=== PATIENT | female | born 1980 | race Caucasian/White ===

== ENCOUNTER 2017-11-22 18:56 | Emergency (ER) | payer MEDICAID ==
[2017-11-22 19:40] VITALS: BP 136/84; PULSE 98; RESP 18; TEMP 99.2; O2SAT 99
[2017-11-22] MEDS ORDERED: Dexamethasone 4 mg/1 ml IM STA (20:05)
--- NOTE | 2017-11-22 20:50 | C.PDOC ---
History Of Present Illness 37 year old female is sent to the ED by her PMD for evaluation of worsening throat pain and possible peritonsilar abscess. Patient reports she saw her PMD 3 days ago c/o sore throat and was prescribed Amoxicillin for pharyngitis. Patient states symptoms have not improved and now is c/o increased pain mostly on her left side of the throat. Patient went to see her PMD today who sent her to the ED for evaluation. Patient denies fever, chills, nausea, vomit, weakness , numbness. Time Seen by Provider: 11/22/17 19:50 Chief Complaint (Nursing): ENT Problem History Per: Patient History/Exam Limitations: None Onset/Duration Of Symptoms: Days Current Symptoms Are (Timing): Worse Quality (Mouth/Throat): Tenderness Symptoms Have Been: Continuous Anticoagulant/Antiplatlet Use?: No Recent Aspirin Use: No Past Medical History Reviewed: Historical Data, Nursing Documentation, Vital Signs Vital Signs: Last Vital Signs Temp 99.2 F 11/22/17 19:36 Pulse 98 H 11/22/17 19:36 Resp 18 11/22/17 19:36 BP 136/84 11/22/17 19:36 Pulse Ox 99 11/23/17 00:10 - Medical History PMH: No Chronic Diseases Surgical History: - [facility] Procedures MONITORING NOS (03/04/14) Family History: States: Unknown Family Hx - Social History Hx Tobacco Use: No Hx Alcohol Use: No Hx Substance Use: No - Immunization History Hx Tetanus Toxoid Vaccination: No Hx Influenza Vaccination: Yes Hx Pneumococcal Vaccination: No Review Of Systems Constitutional: Negative for: Fever, Chills ENT: Positive for: Throat Pain. Negative for: Nose Discharge, Nose Congestion, Throat Swelling Respiratory: Negative for: Cough, Shortness of Breath Skin: Negative for: Rash Neurological: Negative for: Weakness, Numbness Physical Exam - Physical Exam Appears: Non-toxic, No Acute Distress Skin: Normal Color, Warm, Dry Head: Atraumatic, Normacephalic, No Swelling (facial, mandible) Eye(s): bilateral: Normal Inspection Ear(s): Bilateral: Normal Nose: No Discharge Oral Mucosa: Moist Tongue: No Swelling Lips: No Swelling Throat: Erythema, No Exudate, No Drooling, Other (B/L tonsillar enlargement. Left > Right. Uvula midline. No fluctuant mass or exudates) Neck: Normal ROM, No Midline Cervical Tenderness, Supple, Other (No neck swelling) Neurological/Psych: Oriented x3, Normal Speech Gait: Steady ED Course And Treatment O2 Sat by Pulse Oximetry: 99 (ON RA) Pulse Ox Interpretation: Normal Progress Note: Plan: - Clindamycin 300 mg PO. - Decadron 10 mg IM. Patient was advised to discontinue the use of amoxicillin and clindamycin was initiated in the ED instead. Patient was also advised to follow up with PMD and ENT for further evaluation. Return precautions d/w pt who understand and agreed with plan Reassessment Condition: Improved Disposition Counseled Patient/Family Regarding: Diagnosis, Need For Followup, Rx Given - Disposition Referrals: Rafy Stevens MD [Staff Provider] - Disposition: HOME/ ROUTINE Disposition Time: 20:48 Condition: STABLE Additional Instructions: Discontinue amoxicillin Take new meds as prescribed Gargle with warm salt water Follow up with Dr Stevens as needed Return to ER if neck or facial swelling, difficulty swallowing saliva, or worse Prescriptions: Clindamycin [Cleocin] 300 mg PO QID #28 cap predniSONE [Prednisone] 40 mg PO DAILY #10 tab Instructions: Sore Throat, Adult (DC) Forms: [employer] (Wolof) Print Language: TURKISH - Clinical Impression Clinical Impression: Pharyngitis - 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 - Scribe Statement The provider has reviewed the documentation as recorded by the Scribe Kamlesh Hinojosa All medical record entries made by the Scribe were at my direction and personally dictated by me. I have reviewed the chart and agree that the record accurately reflects my personal performance of the history, physical exam, medical decision making, and the department course for this patient. I have also personally directed, reviewed, and agree with the discharge instructions and disposition.
== END 2017-11-22 20:56 | disposition home or self-care (01) ==
LOC: SUPCPDRO 18:56 → C.ER 18:56
DX: J02.9 Acute pharyngitis, unspecified (principal)
CPT/HCPCS: 96372; 99283; J1100

== ENCOUNTER 2017-12-26 18:46 | Observation (INO) | payer MEDICAID ==
[2017-12-26 18:56] VITALS: BMI 51.5
[2017-12-26] MEDS ORDERED: Sodium Chloride 0.9% 1,000 ML IV ONE (19:13)
[2017-12-26] MEDS ORDERED: Clindamycin 600 MG in Sodium Chloride 0.9% 100 ML IV STA (19:14)
[2017-12-26] MEDS ORDERED: Morphine 4 MG/ML VIAL IV ONE (19:16)
[2017-12-26] MEDS ORDERED: Iodixanol 320 MG/ML 100 ML BOTTLE IV ONE (19:19)
--- NOTE | 2017-12-26 19:26 | C.PDOC ---
History Of Present Illness 37 year old with no significant PMHx presents to the ED c/o 1 week history of throat pain. Patient reports her pain has been increasing along with swallowing a fever, she also reports tender and swelling on her left side of the neck. Patient went to see Dr. Cabrera who placed her on amoxil but patient reports no improvements of her symptoms. Patient went to see Dr. Cabrera again today but was referred to the ED for further evaluation for possible abscess. Patient denies headache, vomit, diarrhea, chills, CP, SOB. Time Seen by Provider: 12/26/17 19:09 Chief Complaint (Nursing): ENT Problem History Per: Patient History/Exam Limitations: None Onset/Duration Of Symptoms: Days (1 week) Current Symptoms Are (Timing): Still Present Quality (Mouth/Throat): Tenderness, Swelling Anticoagulant/Antiplatlet Use?: No Recent Aspirin Use: No Past Medical History Reviewed: Historical Data, Nursing Documentation, Vital Signs Vital Signs: Last Vital Signs Temp 97.6 F 12/27/17 00:00 Pulse 91 H 12/27/17 00:00 Resp 20 12/27/17 00:00 BP 112/74 12/27/17 00:00 Pulse Ox 97 12/27/17 00:00 - Medical History PMH: No Chronic Diseases Surgical History: - [facility] Procedures MONITORING NOS (03/04/14) Family History: States: Unknown Family Hx - Social History Hx Tobacco Use: No Hx Alcohol Use: No Hx Substance Use: No - Immunization History Hx Tetanus Toxoid Vaccination: No Hx Influenza Vaccination: Yes Hx Pneumococcal Vaccination: No Review Of Systems Constitutional: Negative for: Fever, Chills ENT: Positive for: Throat Pain, Throat Swelling. Negative for: Nose Discharge, Nose Congestion Cardiovascular: Negative for: Chest Pain Respiratory: Negative for: Cough, Shortness of Breath Gastrointestinal: Negative for: Nausea, Vomiting, Abdominal Pain Skin: Negative for: Rash Neurological: Negative for: Weakness, Numbness Physical Exam - Physical Exam Appears: Non-toxic, No Acute Distress Skin: Normal Color, Warm, Dry Head: Atraumatic, Normacephalic Eye(s): bilateral: Normal Inspection Ear(s): Bilateral: Normal Nose: No Discharge Oral Mucosa: Moist Throat: Erythema, Exudate, No Drooling, Mass (left tonsil ), Other (Uvula midline ) Neck: Normal ROM, Supple Lymphatic: Adenopathy (submandibular tenderness) Cardiovascular: Rhythm Regular, No Murmur Respiratory: Normal Breath Sounds, No Rales, No Rhonchi, No Wheezing Gastrointestinal/Abdominal: Soft, No Tenderness, No Mass, No Guarding, No Rebound, Other (obese) Extremity: Normal ROM, No Tenderness, Capillary Refill (< 2 seconds), No Swelling Pulses: Left Dorsalis Pedis: Normal, Right Dorsalis Pedis: Normal Neurological/Psych: Oriented x3, Normal Speech Gait: Steady ED Course And Treatment - Laboratory Results Result Diagrams: 12/26/17 19:30 12/26/17 19:30 O2 Sat by Pulse Oximetry: 100 (ON RA) Pulse Ox Interpretation: Normal - CT Scan/US CT neck Other Rad Studies (CT/US): Read By Radiologist, Radiology Report Reviewed CT/US Interpretation: FINDINGS: Oropharynx: Left tonsillar inflammation and edema accompanied by a small abscess which. measures 1.6 cm. Mild mass effect on the adjacent airway. Hypopharynx: Unremarkable. Larynx: Unremarkable. Normal epiglottis. Trachea: Unremarkable. Retropharyngeal space: Unremarkable. Submandibular/parotid glands: The parotid and submandibular salivary glands are normal. Thyroid: The visualized thyroid and the thoracic inlet appear normal. Bones/joints: No acute fracture. Soft tissues: Unremarkable. Vasculature: No acute findings. Lymph nodes: There are multiple enlarged nonspecific bilateral left more to the right cervical nodes. Sinuses: Sinuses are clear without air-fluid levels, or mucoperiosteal thickening. Lung apices: The visualized portions of the lung apices are normal. IMPRESSION: Left tonsillitis complicated by a small abscess. Reactive cervical adenopathy more pronounced on the left. Thank you for allowing us to participate in the care of your patient. Dictated and Authenticated by: Lucius Gonsalves MD. 8:20 PM Eastern Time ([place] & [place]) Medical Decision Making Medical Decision Making: Impression: possible left peritonsillar abscess Plan: * CT neck * Labs * Clindamycin IV * Decadron 10 mg IVP * Morphine 4 mg IVP * IV fluids * [place] * Rapid strep group Disposition - Disposition Disposition: HOSPITALIZED Disposition Time: 04:31 Condition: GOOD - Clinical Impression Clinical Impression: Peritonsillar abscess - Scribe Statement The provider has reviewed the documentation as recorded by the Scribe Kamlesh Hinojosa All medical record entries made by the Pierreibkatelyn were at my direction and personally dictated by me. I have reviewed the chart and agree that the record accurately reflects my personal performance of the history, physical exam, medical decision making, and the department course for this patient. I have also personally directed, reviewed, and agree with the discharge instructions and disposition.
[2017-12-26 19:34] LABS: BASO % 0.3 % (0.0-2.0); EOS # 0.1 K/uL (0.0-0.7); EOS % 0.6 % (0.0-4.0); LYMPH # 2.1 K/uL (1.0-4.3); LYMPH % 20.5 % (20.0-40.0); MEAN CELL VOLUME 80.7 fL (81.0-99.0); MEAN CORPUSCULAR HEMOGLOBIN 27.4 pg (27.0-31.0); MEAN PLATELET VOLUME 8.5 fL (7.2-11.7); MONO # 0.8 K/uL (0.0-0.8); MONO % 7.8 % (0.0-10.0); NEUT # 7.1 K/uL (1.8-7.0); NEUT % 70.8 % (50.0-75.0); RBC 4.76 Mil/uL (3.80-5.20); RED CELL DISTRIBUTION WIDTH 15.4 % (11.5-14.5)
[2017-12-26] MEDS ORDERED: Sodium Chloride 0.9% 1,000 ML ONE (19:42)
[2017-12-26] MEDS ORDERED: Morphine 4 MG/ML VIAL ONE (19:42)
[2017-12-26 19:45] LABS: ALB/GLOB RATIO 1.1 (1.0-2.1); ALBUMIN 4.1 g/dL (3.5-5.0); ALT/SGPT 35 U/L (9-52); AST/SGOT 18 U/L (14-36); BLOOD UREA NITROGEN 12 mg/dL (7-17); CALCIUM 9.4 mg/dl (8.6-10.4); GFR AFRICAN-AMERICAN > 60; GFR NON-AFRICAN AMERICAN > 60
[2017-12-27 01:37] VITALS: RESP 20
[2017-12-27] MEDS ORDERED: Lidocaine/Epi 1% 1:100000 20 ML IJ SCH (06:00)
--- NOTE | 2017-12-27 08:18 | CP.PCM.PN ---
Subjective - Date & Time of Evaluation Date of Evaluation: 12/27/17 Time of Evaluation: 07:50 - Subjective Subjective: PGY2 Resident - Medicine Progress Note This 37 year old with no significant PMHx presents to the ED c/o 1 week history of throat pain. Patient reports her pain has been increasing along with swallowing a fever, she also reports tender and swelling on her left side of the neck. Patient went to see Dr. Cabrera who placed her on amoxil but patient reports no improvements of her symptoms. Patient went to see Dr. Cabrera again today but was referred to the ED for further evaluation for possible abscess. Patient denies headache, vomit, diarrhea, chills, CP, SOB. PMHx - none PSHx - none NKDA Meds - none FamHx- none Patient seen and examined at bedside. No acute distress. No overnight events. Patient is s/p I&D of L Peritonsillar abscess with Dr. Stevens. Patient tolerated the procedure well and reports decreased pressure and pain. +BM this morning. Currently denies f/c, headache, chest pain, SOB, abdominal pain, n/v, d/c, or LE edema. 12-point review of systems is otherwise negative without any additional acute complaints. Objective - Vital Signs/Intake and Output Vital Signs (last 24 hours): Temp Pulse Resp BP Pulse Ox 97.6 F 76 20 103/70 96 12/27/17 07:37 12/27/17 07:37 12/27/17 07:37 12/27/17 07:37 12/27/17 07:37 Intake and Output: 12/27/17 12/27/17 06:59 18:59 Intake Total 200 Balance 200 - Medications Medications: Current Medications Lidocaine/Epinephrine (Lidocaine/Epi 1% 1:321377 20 Ml) 20 ml IJ ONCE CAROL - Labs Labs: 12/26/17 19:30 12/26/17 19:30 - Additional Findings Additional findings: Appears: Non-toxic, No Acute Distress Skin: Normal Color, Warm, Dry Head: Atraumatic, Normacephalic Eye(s): bilateral: Normal Inspection Ear(s): Bilateral: Normal Nose: No Discharge Oral Mucosa: Moist Throat: Erythema, No Drooling, Mass (left tonsil- s/p I&D ), Other (Uvula midline ) Neck: Normal ROM, Supple Lymphatic: Adenopathy (submandibular tenderness) Cardiovascular: Rhythm Regular, No Murmur Respiratory: Normal Breath Sounds, No Rales, No Rhonchi, No Wheezing Gastrointestinal/Abdominal: Soft, No Tenderness, No Mass, No Guarding, No Rebound, Other (obese) Extremity: Normal ROM, No Tenderness, Capillary Refill (< 2 seconds), No Swelling Pulses: Left Dorsalis Pedis: Normal, Right Dorsalis Pedis: Normal Neurological/Psych: Oriented x3, Normal Speech Assessment and Plan - Assessment and Plan (Free Text) Assessment: Peritonsillar abscess, Left, s/p I&D * ENT consult Dr. Stevens, f/u recs * Patient is s/p I&D 12/26/17 * * Viscous lidocain q4H PRN * IVF ns 0.9 at 80cc/hr * Clindamycin 600mg IVPB q8H * * WBC 10, wnl * negative mono, negative group A strep * CT neck - L tonsillitis + small abscess. see full report Prophylaxis * SCDs * Protonix 40mg IVP qD Disposition: Likely d/c 12/28 Case discussed with attending. All medical management as per Dr. Elvin Cabrera.
--- NOTE | 2017-12-27 10:36 | CT ---
PROCEDURE: CT NECK dated 12/26/2017 HISTORY: Peritonsillar abscess COMPARISON: No prior study available for comparison TECHNIQUE: Contiguous helical/ transaxial sections of the neck with intravenous contrast. Coronal and sagittal reformats generated. Intravenous contrast dose: 100 cc Visipaque 320 Radiation dose: DLP 586.39 mGy-cm This CT exam was performed using one or more of the following dose reduction techniques: Automated exposure control, adjustment of the mA and/or kV according to patient size, and/or use of iterative reconstruction technique. FINDINGS: The current study reveals enlargement of the palatine tonsils more so on the left than right consistent with tonsillitis. There is a small incompletely visualized elliptical shaped low-attenuation in the in the left lateral peritonsillar region that measures approximately 14.5 mm x 5 mm consistent with a small left palatine peritonsillar abscess. Note that the streak and beam hardening artifact of partially obscures the superior margin of this suspected abscess. The tonsils encroach medially reducing the rock pharyngeal airway. . The vallecula is relatively symmetric. Free margin of the epiglottis unremarkable. There is minor asymmetry of the pyriform sinuses right-sided which is slightly larger than the left though this is likely due to some mild mass effect reduced by a short retropharyngeal course of the distal common carotid artery which includes the bifurcation and proximal left internal carotid artery. True vocal cords are symmetric. Airway is patent. There are multiple on bilateral cervical lymph nodes seen within the jugulodigastric, submandibular, submental and posterior cervical spaces none of which appear pathologically enlarged. . Largest on left-sided jugular digastric lymph node measures approximately 12.8 cm and largest right-sided jugulodigastric lymph node measures approximately 0.96 cm. . IMPRESSION: Mild enlargement of both palatine tonsils left, greater than right with what appears represent a small incompletely seen (due to streak and beam hardening artifact) left palatine tonsillar abscess. . See above discussion for additional details.
[2017-12-27] MEDS: Acetaminophen-Codeine 300/30 mg Tab PO PRN ×2 (11:13→23:45)
[2017-12-27] MEDS: Sodium Chloride 0.9% 1,000 ML IV SCH ×2 (11:17→23:44)
[2017-12-27 11:33] LABS: BASO % 0.1 % (0.0-2.0); HEMOGLOBIN 12.8 g/dL (11.0-16.0); LYMPH # 1.1 K/uL (1.0-4.3); LYMPH % 10.7 % (20.0-40.0); MEAN CELL VOLUME 80.4 fL (81.0-99.0); MEAN CORPUSCULAR HEMOGLOBIN 27.4 pg (27.0-31.0); MEAN CORPUSCULAR HGB CONC 34.1 g/dL (33.0-37.0); MEAN PLATELET VOLUME 8.6 fL (7.2-11.7); MONO # 0.4 K/uL (0.0-0.8); MONO % 3.5 % (0.0-10.0); NEUT # 8.7 K/uL (1.8-7.0); NEUT % 85.7 % (50.0-75.0); NRBC % 0.1 % (0.0-2.0); RBC 4.66 Mil/uL (3.80-5.20); RED CELL DISTRIBUTION WIDTH 15.1 % (11.5-14.5); WHITE BLOOD COUNT 10.1 K/uL (4.8-10.8)
[2017-12-27 11:50] LABS: ALB/GLOB RATIO 1.1 (1.0-2.1); ALBUMIN 4.2 g/dL (3.5-5.0); ALT/SGPT 18 U/L (9-52); AST/SGOT 18 U/L (14-36); BLOOD UREA NITROGEN 10 mg/dL (7-17); CALCIUM 9.3 mg/dl (8.6-10.4); GFR AFRICAN-AMERICAN > 60; GFR NON-AFRICAN AMERICAN > 60
[2017-12-27] MEDS: Clindamycin 600mg/50ml NS 600 MG/50 ML BAG IVPB SCH ×2 (12:54→19:55)
[2017-12-27] MEDS ORDERED: Pneumococcal 23-Valent Vaccine IM ONE (14:50)
--- NOTE | 2017-12-27 20:07 | OP ---
PROCEDURE DATE: 12/26/2017 PREOPERATIVE DIAGNOSIS: Left peritonsillar abscess. POSTOPERATIVE DIAGNOSIS: Left peritonsillar abscess. SURGEON: Rafy Stevens MD SIGNIFICANT FINDINGS: Left peritonsillar abscess. DESCRIPTION OF PROCEDURE: The patient was brought into the room. The patient was placed in seated position. The left peritonsillar area was injected with lidocaine with epinephrine. A #11 blade was used to make an incision in the left peritonsillar area. Blunt dissection was done. Pus was noted coming out. Loculations were broken into the clamp. Bleeding was controlled with time. The patient tolerated the procedure well. Rafy Stevens MD MTDD
[2017-12-28 00:40] VITALS: PULSE 82; O2SAT 97
[2017-12-28] MEDS: Clindamycin 600mg/50ml NS 600 MG/50 ML BAG IVPB SCH ×2 (03:34→11:51)
--- NOTE | 2017-12-28 07:48 | CP.PCM.PN ---
Subjective - Date & Time of Evaluation Date of Evaluation: 12/28/17 Time of Evaluation: 07:05 - Subjective Subjective: PGY2 Resident - Medicine Progress Note Patient seen and examined at bedside. No acute distress. No overnight events. Patient is s/p I&D of L Peritonsillar abscess with Dr. Stevens. Patient tolerated the procedure well and reports decreased pressure and pain. +BM this morning. Currently denies f/c, headache, chest pain, SOB, abdominal pain, n/v, d/c, or LE edema. 12-point review of systems is otherwise negative without any additional acute complaints. --- Patient is stable for discharge per Dr. Cabrera. Patient should resume all medications as outlined in this document. Additionally, patient should take the new medications listed below (scripts provided). Please avoid hard foods for 5 days, to allow your L tonsil time to heal after the I&D. Please make an appointment and follow up with your Primary Doctor within one week of discharge. Patient should return to ED immediately if symptoms return or worsen. Instructions discussed with patient who understood and agreed. Newly prescribed medications: Augmentin 875mg PO q12H #14 Objective - Vital Signs/Intake and Output Vital Signs (last 24 hours): Temp Pulse Resp BP Pulse Ox 97.2 F L 82 20 106/66 97 12/28/17 00:00 12/28/17 00:00 12/28/17 00:00 12/28/17 00:00 12/28/17 00:00 Intake and Output: 12/28/17 12/28/17 06:59 18:59 Intake Total 1740 Balance 1740 - Medications Medications: Current Medications Acetaminophen/Codeine Phosphate (Tylenol/Codeine 300 Mg/30 Mg) 1 ea PO Q6 PRN PRN Reason: Pain, moderate (4-7) Last Admin: 12/27/17 23:45 Dose: 1 ea Clindamycin Phosphate (Cleocin In Normal Saline) 600 mg in 50 mls @ 100 mls/hr IVPB Q8H CAROL PRN Reason: Protocol Last Admin: 12/28/17 03:34 Dose: 100 mls/hr Sodium Chloride (Sodium Chloride 0.9%) 1,000 mls @ 80 mls/hr IV .[id number] CAROL Last Admin: 12/27/17 23:44 Dose: 80 mls/hr Lidocaine HCl (Lidocaine 2% Viscous) 15 ml PO Q4H PRN PRN Reason: Pain, Mild (1-3) Last Admin: 12/28/17 03:36 Dose: 15 ml Lidocaine/Epinephrine (Lidocaine/Epi 1% 1:083963 20 Ml) 20 ml IJ ONCE CAROL Pantoprazole Sodium (Protonix Inj) 40 mg IVP DAILY CAROL Last Admin: 12/27/17 12:54 Dose: 40 mg - Labs Labs: 12/27/17 11:22 12/27/17 11:22 - Additional Findings Additional findings: Appears: Non-toxic, No Acute Distress Skin: Normal Color, Warm, Dry Head: Atraumatic, Normacephalic Eye(s): bilateral: Normal Inspection Ear(s): Bilateral: Normal Nose: No Discharge Oral Mucosa: Moist Throat: Erythema, No Drooling, Mass (left tonsil- s/p I&D ), Other (Uvula midline ) Neck: Normal ROM, Supple Lymphatic: Adenopathy (submandibular tenderness) Cardiovascular: Rhythm Regular, No Murmur Respiratory: Normal Breath Sounds, No Rales, No Rhonchi, No Wheezing Gastrointestinal/Abdominal: Soft, No Tenderness, No Mass, No Guarding, No Rebound, Other (obese) Extremity: Normal ROM, No Tenderness, Capillary Refill (< 2 seconds), No Swelling Pulses: Left Dorsalis Pedis: Normal, Right Dorsalis Pedis: Normal Neurological/Psych: Oriented x3, Normal Speech Assessment and Plan - Assessment and Plan (Free Text) Assessment: Peritonsillar abscess, Left, s/p I&D * 12/28: WBC 5.0; patient will be d/c'd on PO abx. * ENT consult Dr. Stevens, f/u recs * Patient is s/p I&D 12/26/17 * * Viscous lidocain q4H PRN * IVF ns 0.9 at 80cc/hr * Clindamycin 600mg IVPB q8H * * WBC 10, wnl * negative mono, negative group A strep * CT neck - L tonsillitis + small abscess. see full report Prophylaxis * SCDs * Protonix 40mg IVP qD Disposition: Likely d/c 12/28 Case discussed with attending. All medical management as per Dr. Elvin Cabrera.
[2017-12-28 08:09] LABS: BASO % 0.2 % (0.0-2.0); EOS % 0.2 % (0.0-4.0); HEMOGLOBIN 12.4 g/dL (11.0-16.0); LYMPH # 2.9 K/uL (1.0-4.3); LYMPH % 28.4 % (20.0-40.0); MEAN CORPUSCULAR HEMOGLOBIN 27.8 pg (27.0-31.0); MEAN CORPUSCULAR HGB CONC 34.7 g/dL (33.0-37.0); MEAN PLATELET VOLUME 8.7 fL (7.2-11.7); MONO # 0.7 K/uL (0.0-0.8); MONO % 6.8 % (0.0-10.0); NEUT # 6.6 K/uL (1.8-7.0); NEUT % 64.4 % (50.0-75.0); RBC 4.45 Mil/uL (3.80-5.20); RED CELL DISTRIBUTION WIDTH 15.4 % (11.5-14.5); WHITE BLOOD COUNT 10.2 K/uL (4.8-10.8)
[2017-12-28 08:27] LABS: ALB/GLOB RATIO 1.1 (1.0-2.1); ALBUMIN 3.8 g/dL (3.5-5.0); ALT/SGPT 17 U/L (9-52); AST/SGOT 16 U/L (14-36); BLOOD UREA NITROGEN 13 mg/dL (7-17); CALCIUM 8.6 mg/dl (8.6-10.4); GFR AFRICAN-AMERICAN > 60; GFR NON-AFRICAN AMERICAN > 60
[2017-12-28 08:42] VITALS: BP 105/73; TEMP 98.4
--- NOTE | 2017-12-28 09:24 | HP ---
HISTORY OF PRESENT ILLNESS: The patient was admitted to the hospital with chief complaint of weakness, fatigue, status post fall, difficulty swallowing. The patient was found to have peritonsillar abscess. Advised admission from the ER. PHYSICAL EXAMINATION: GENERAL: The patient is awake, alert, and oriented. VITAL SIGNS: Temperature 98, , pulse of 90. HEENT: Reveals abscess in the peritonsillar area. NECK: Supple. CHEST: Symmetrical. HEART: Regular. ABDOMEN: Soft. EXTREMITIES: No edema. IMPRESSION AND PLAN: Peritonsillar abscess. The patient to get IV antibiotics, supportive care. Ear, Nose, Throat consult. Deb Cabrera MD
[2017-12-28] MEDS: Sodium Chloride 0.9% 1,000 ML IV SCH (13:32)
== END 2017-12-28 15:40 | disposition home or self-care (01) ==
LOC: C.ER 18:46 → C.9E 20:29 → C.3T 22:01
PROVIDERS: ADMIT Internal Medicine Pulmonary Disease; ATTEND Internal Medicine Pulmonary Disease
DX: J36 Peritonsillar abscess (principal)
CPT/HCPCS: 36415; 42700; 70491; 80053; 83735; 84100; 85025; 86308; 87070; 87430; 96361; 96365; 96366; 96375; 96376; 99285; C9113; G0378; J1100; J2270; J7040; Q9967

== ENCOUNTER 2018-08-30 14:09 | Outpatient (CLI) | payer MEDICAID | END 2018-08-30 14:10 | disposition home or self-care (01) | LOC: C.RADIC 14:09 | DX: M19.071 Primary osteoarthritis, right ankle and foot (principal); M19.072 Primary osteoarthritis, left ankle and foot ==

== ENCOUNTER 2018-09-25 01:17 | Emergency (ER) | payer MEDICAID ==
[2018-09-25 01:17] VITALS: BMI 51.5
[2018-09-25] MEDS ORDERED: Sodium Chloride 0.9% 1,000 ML IV ONE (01:59)
--- NOTE | 2018-09-25 02:00 | C.PDOC ---
History Of Present Illness 38 year old female, whose past medical history includes asthma and arthritis, presents to the ED for evaluation of diffuse abdominal pain which began at around 2200 today, after she accidentally drank a small cup of buttermil k three hours prior. Patient states her pain is crampy and generalized, worst epigastric and LUQ. She took one 500mg tablet of Tylenol without relief. Otherwise, she denies chest pain, back pain, trouble breathing, cough, congestion, vomiting, diarrhea, urinary symptoms, fever, chills, or any other associated symptoms. Time Seen by Provider: 09/25/18 01:31 Chief Complaint (Nursing): Abdominal Pain History Per: Patient History/Exam Limitations: no limitations Onset/Duration Of Symptoms: Hrs Current Symptoms Are (Timing): Still Present Location Of Pain/Discomfort: Diffuse Radiation Of Pain To:: None Quality Of Discomfort: Sharp, "Pain" Associated Symptoms: denies: Vomiting, Diarrhea Additional History Per: Patient Abnormal Vaginal Bleeding: No Past Medical History Reviewed: Historical Data, Nursing Documentation, Vital Signs Vital Signs: Last Vital Signs Temp 97.6 F 09/25/18 01:31 Pulse 84 09/25/18 01:31 Resp 18 09/25/18 01:31 BP 120/81 09/25/18 01:31 Pulse Ox 100 09/25/18 01:31 - Medical History PMH: Asthma Surgical History: - [facility] MONITORING NOS (03/04/14) Family History: States: Unknown Family Hx - Social History Hx Tobacco Use: No Hx Alcohol Use: No Hx Substance Use: No - Immunization History Hx Tetanus Toxoid Vaccination: No Hx Influenza Vaccination: Yes Hx Pneumococcal Vaccination: No Review Of Systems Constitutional: Negative for: Fever, Chills Eyes: Negative for: Vision Change ENT: Negative for: Nose Congestion, Throat Pain Cardiovascular: Negative for: Chest Pain, Palpitations, Light Headedness Respiratory: Negative for: Cough, Shortness of Breath Gastrointestinal: Positive for: Abdominal Pain (diffuse ). Negative for: Nausea, Vomiting, Diarrhea Musculoskeletal: Negative for: Neck Pain, Back Pain Skin: Negative for: Rash Neurological: Negative for: Weakness, Numbness, Headache, Dizziness Physical Exam - Physical Exam Appears: Well, Non-toxic, No Acute Distress Skin: Normal Color, Warm, Dry Head: Atraumatic, Normacephalic Eye(s): bilateral: Normal Inspection, PERRL, EOMI Nose: Normal Oral Mucosa: Moist Neck: Normal ROM, No Midline Cervical Tenderness, No Paracervical Tenderness, Supple Chest: Symmetrical, No Deformity, No Tenderness Cardiovascular: Rhythm Regular, No Murmur Respiratory: Normal Breath Sounds, No Accessory Muscle Use, No Rales, No Rhonchi, No Wheezing Gastrointestinal/Abdominal: Bowel Sounds (hyperactive throughout), Soft, Tend erness (to epigastric and left upper quadrants ), No Guarding, No Rebound Back: Normal Inspection, No CVA Tenderness, No Paraspinal Tenderness Extremity: Normal ROM, No Tenderness, Capillary Refill (less than 2 seconds ), No Swelling Extremity: Bilateral: Atraumatic, No Pedal Edema, Normal Color And Temperature, Normal ROM Pulses: Left Radial: Normal, Right Radial: Normal Neurological/Psych: Oriented x3, Normal Speech, Normal Cognition, Normal Motor, Normal Sensation Gait: Steady ED Course And Treatment - Laboratory Results Result Diagrams: 09/25/18 02:42 09/25/18 02:42 Lab Interpretation: Normal Urine POC: Negative ECG: Interpreted By Me ECG Rhythm: Sinus Rhythm, 1st Degree HB Interpretation Of ECG: Rate 89; NSR with 1st degree AV block; No STEMI or other signs of acute ischemia Rate From EC O2 Sat by Pulse Oximetry: 100 (on RA) Pulse Ox Interpretation: Normal - Radiology CXR: Interpreted by Me (and Dr. Richardson), Viewed By Me CXR Interpretation: Yes: No Acute Disease Medical Decision Making Medical Decision Making: Plan: * bloodwork * urinalysis * EKG * CXR * Pepcid IVP * Toradol IVP * IV Fluids * reassess and disposition Progress: Bloodwork, urinalysis reviewed, unremarkable EKG shows NSR with 1st degree AV block; no STEMI or other ischemic changes CXR shows no active disease as read by me On reassessment, patient is resting comfortably, showing no signs of distress and reports resolution of her pain. Patient is stable for discharge. She is advised to follow up with her PMD within 1-2 days for further evaluation. Advised to return to the ED if symptoms return or worsen. Diagnostic testing results and plan of care discussed with patient. Strict instructions given regarding prescription use, importance of followup, and signs/symptoms to return to ER including worsening abdominal pain, fever, chills, vomiting, chest pain, or any other new/worsening symptoms. Pt verbalized understanding of discussion. Patient is A&Ox3, ambulating with steady gait, with vital signs stable for discharge. Disposition - Disposition Referrals: Griffin Carballo MD [Primary Care Provider] - Disposition: HOME/ ROUTINE Disposition Time: 03:45 Condition: IMPROVED Additional Instructions: Pepcid every 12 hours as needed Increase fluids Followup with primary doctor within 2 days Return to ER for any new/worsening symptoms Prescriptions: Famotidine [Pepcid] 20 mg PO Q12 #30 tab Instructions: Food Poisoning Forms: General Discharge Instructions, [facility] (Burkinan), Work Excuse - Clinical Impression Clinical Impression: Gastroenteritis - PA / [employer] / Resident Statement MD/DO has reviewed & agrees with the documentation as recorded. - Scribe Statement The provider has reviewed the documentation as recorded by the Scribe (Jodi Colvin) All medical record entries made by the Scribe were at my direction and personally dictated by me. I have reviewed the chart and agree that the record a ccurately reflects my personal performance of the history, physical exam, medical decision making, and the department course for this patient. I have also personally directed, reviewed, and agree with the discharge instructions and disposition.
[2018-09-25] MEDS ORDERED: Sodium Chloride 0.9% 1,000 ML ONE (02:27)
[2018-09-25 02:46] LABS: BASO % 0.3 % (0.0-2.0); EOS # 0.1 K/uL (0.0-0.7); EOS % 1.6 % (0.0-4.0); HEMOGLOBIN 12.6 g/dL (11.0-16.0); LYMPH # 2.1 K/uL (1.0-4.3); LYMPH % 29.3 % (20.0-40.0); MEAN CELL VOLUME 83.2 fL (81.0-99.0); MEAN CORPUSCULAR HEMOGLOBIN 27.3 pg (27.0-31.0); MEAN CORPUSCULAR HGB CONC 32.9 g/dL (33.0-37.0); MEAN PLATELET VOLUME 8.6 fL (7.2-11.7); MONO # 0.6 K/uL (0.0-0.8); NEUT # 4.4 K/uL (1.8-7.0); NEUT % 60.8 % (50.0-75.0); NRBC % 0.1 % (0.0-2.0); RBC 4.6 Mil/uL (3.80-5.20); RED CELL DISTRIBUTION WIDTH 15.3 % (11.5-14.5); WHITE BLOOD COUNT 7.3 K/uL (4.8-10.8)
[2018-09-25 02:56] LABS: INR 1.1; PROTHROMBIN TIME 11.9 SECONDS (9.7-12.2)
[2018-09-25 02:59] LABS: ALB/GLOB RATIO 1.3 (1.0-2.1); ALBUMIN 4.2 g/dL (3.5-5.0); ALT/SGPT 33 U/L (9-52); AST/SGOT 75 U/L (14-36); BLOOD UREA NITROGEN 17 mg/dL (7-17); CALCIUM 9.2 mg/dl (8.6-10.4); GFR NON-AFRICAN AMERICAN > 60; LIPASE 72 U/L (23-300)
[2018-09-25 03:13] LABS: SQUAMOUS EPITHIAL < 1 /hpf (0-5); URINE BILIRUBIN NEGATIVE (NEGATIVE); URINE BLOOD NEGATIVE (NEGATIVE); URINE CLARITY Clear (Clear); URINE COLOR Yellow (YELLOW); URINE GLUCOSE (UA) NORMAL (Normal); URINE LEUKOCYTE ESTERASE NEG Leu/uL (Negative); URINE PROTEIN NEGATIVE (NEGATIVE)
[2018-09-25 04:11] VITALS: BP 108/74; PULSE 79; RESP 20; TEMP 98.1
--- NOTE | 2018-09-25 10:57 | RAD ---
HISTORY: upper abd pain COMPARISON: None available TECHNIQUE: Chest, one view. FINDINGS: Examination markedly limited by habitus and hypoinflation. LUNGS: No focal consolidation. Please note that chest x-ray has limited sensitivity for the detection of pulmonary masses. PLEURA: No significant pleural effusion identified. No definite pneumothorax . CARDIOVASCULAR: Heart size appears top normal. Probable faint atherosclerotic calcifications. OSSEOUS STRUCTURES: No acute osseous abnormality identified. VISUALIZED UPPER ABDOMEN: Unremarkable. OTHER FINDINGS: None. IMPRESSION: Hypoinflation.
[2018-09-26 03:02] VITALS: O2SAT 100
== END 2018-09-25 04:12 | disposition home or self-care (01) ==
LOC: C.ER 01:17 → SUPCPDRO 01:17 → C.ER 04:12
DX: K52.9 Noninfective gastroenteritis and colitis, unspecified (principal)
CPT/HCPCS: 71045; 80053; 81001; 83690; 84484; 85025; 85610; 85730; 96361; 96374; 96375; 99285; J1885; J7030